=== PATIENT | female | born 1975 | race Two or more races ===

== ENCOUNTER 2017-05-25 21:10 | Emergency (ER) | payer OTHER ==
[~2017-05-25] VITALS: Ht 149.9 cm; Wt 88.5 kg
[~2017-05-25 21:10] MED LIST: BACTRIM-DS1 EA ORAL; BENTYL10 MG ORAL; CIPRO500 MG PO; COLACE100 MG ORAL; KEFLEX500 MG ORAL; NKM; NORCO 5-325 TA1 EACH ORAL; OMEPRAZOLE40 M1 ORAL; PROVENTIL HFA6.7 G1; VICODIN 5-5001 EACH PO; ZANTAC150 MG ORAL; birth control; no home meds
[2017-05-25] MEDS ORDERED: OMEPRAZOLE MAGN20 MG PO (21:24)
[2017-05-25 21:41] VITALS: BP 140/97
--- NOTE | 2017-05-25 21:45 | Emergency Room Report ---
History of Present Illness General Chief Complaint: Chest Pain Source: Patient Present Illness HPI 42-year-old female, p/w back and chest pain for 3 days. States that she has sharp left upper back pain, she also experiences under her left rib and her substernal area., sharp in nature, multiple episodes. Nonexertional. no SOB. Denies palpitations, diaphoresis, n/v. This is the first occurrence of chest pain. Denies fever, chills, cough, abd pain, recent viral illness. Denies trauma. Denies cardiac history, smoking, or family history of cardiac disease at a young age. Denies history of PE/DVT, no recent surgeries, prolonged immobilzation, malignancy, or use of OCPs/HRT. Allergies: Coded Allergies: AMOXICILLIN (Verified Allergy, Unknown, 05/25/17) Patient History Past Medical History: see triage record Past Surgical History: none Pertinent Family History: none Last Menstrual Period: 05/01/17 Now: No Reviewed Nursing Documentation: PMH: Agreed; PSxH: Agreed Nursing Documentation-PMH Past Medical History: No History, Except For Hx Cardiac Problems: No - Left jaw tumor (removed 2013) Hx Asthma: Yes Hx Gastrointestinal Problems: Yes - GERD Review of Systems All Other Systems: negative except mentioned in HPI Physical Exam Vital Signs Date Time Temp Pulse Resp B/P (MAP) Pulse Ox O2 Delivery O2 Flow Rate FiO2 05/25/17 21:17 98.0 87 16 140/97 99 Room Air 98.1 Sp02 EP Interpretation: reviewed, normal General Appearance: normal inspection, well appearing, no apparent distress, alert, GCS 15, non-toxic Head: normocephalic, atraumatic Eyes: bilateral eye normal inspection, bilateral eye PERRL, bilateral eye EOMI ENT: normal ENT inspection, normal pharynx, normal voice, moist mucus membranes Neck: normal inspection, full range of motion, supple Respiratory: normal inspection, lungs clear, normal breath sounds, no respiratory distress, no retraction, no wheezing, speaking full sentences, chest symmetrical Cardiovascular #1: normal inspection, regular rate, rhythm, no edema, normal capillary refill Cardiovascular #2: 2+ radial (R), 2+ radial (L) Gastrointestinal: normal inspection, non tender, soft, non-distended, no guarding Musculoskeletal: other - Left-sided upper thoracic paraspinal tenderness, also tender along scapula bone, tender along left sixth rib, full range of motion all extremities. No signs of trauma. Neurologic: normal inspection, alert, oriented x3, responsive, motor strength/ tone normal, sensory intact, normal gait, speech normal Psychiatric: normal inspection, judgement/insight normal, memory normal Skin: normal inspection, normal color, no rash, warm/dry, well hydrated, normal turgor Medical Decision Making Diagnostic Impression: Primary Impression: Chest pain Additional Impression: Back pain ER Course 42-year-old female p/w back and chest pain DDX: Musculoskeletal CP/costochondritis vs. pneumothorax vs. gastritis/GERD PE less likely given history and physical examination, not hypoxic/tachycardic, no risk factors, PERC negative. ACS less likely given age/history, low suspicion for aortic dissection Plan: NSAIDs, EKG, CXR Anticipate DC home as patient appears clinically well. ER course: Patient remains well appearing in ED. had intermittent muscular spasms that self resolved VS normal. no hypoxia nontoxic appearing conversing with at bedside ekg/cxr neg will dc home Disposition: Patient will be discharged to home with a prescription of motrin and robaxin Strict precautions discussed with patient on when to emergently return to the ED : this includes worsening/severe chest pain, palpitations, shortness of breath, syncopal episodes, fever or chills, which may indicate severe illness. Patient verbalized understanding. Patient instructed to follow up with their PMD within the next 2 days. Patient agrees with plan. Please note that this Emergency Department Report was dictated using [employer] ramp supervisor technology software, occasionally this can lead to erroneous entry secondary to interpretation by the dictation equipment. EKG Diagnostic Results EP Interpretation: Yes Rate: normal Rhythm: NSR ST Segments: No acute changes ASA given to patient: no Rhythm Strip EP Interpretation: Yes Rate: 80 Rhythm: NSR, no PVCs, no ectopy Chest X-ray CXR: Ordered: Yes 1 view Indication: Chest pain EP interpretation: Yes Interpretation: No consolidation, no effusion, no PTX, no acute cardiopulmonary disease Impression: No acute disease Electronically signed by Lucy Forrest MD Last Vital Signs Date Time Temp Pulse Resp B/P (MAP) Pulse Ox O2 Delivery O2 Flow Rate FiO2 05/25/18 21:17 98.0 87 16 140/97 99 Room Air 98.1 Disposition: HOME, SELF-CARE Condition: Improved Scripts Ibuprofen* (MOTRIN*) 600 Mg Tablet 600 MG ORAL Q8H PRN for For Pain, #30 TAB 0 Refills Prov: Lucy Forrest M.D. 05/25/17 Methocarbamol* (ROBAXIN-750*) 750 Mg Tablet 750 MG PO QID, #28 TAB 0 Refills Prov: Lucy Forrest M.D. 05/25/17 Referrals: NON PHYSICIAN (PCP) Patient Instructions: Nonspecific Chest Pain Lucy Forrest M.D. May 25, 2017 21:45
[2017-05-25 21:56] LABS: APPEARANCE,URINE CLEAR; BILIRUBIN, URINE NEGATIVE (NEGATIVE); COLOR,URINE PALE YELLOW; GLUCOSE, URINE (UA) NEGATIVE (NEGATIVE); KETONES,URINE NEGATIVE (NEGATIVE); LEUKOCYTE ESTERASE ,URINE NEGATIVE (NEGATIVE); NITRITE,URINE NEGATIVE (NEGATIVE); PH,URINE 6 (4.5-8.0); PROTEIN,URINE NEGATIVE (NEGATIVE); UROBILINOGEN,URINE NORMAL MG/DL (0.0-1.0)
[2017-05-25] MEDS ORDERED: ROBAXIN-750750 MG PO (22:14)
[2017-05-25] MEDS ORDERED: IBUPROFEN600 MG ORAL (22:14)
[2017-05-25] MEDS ORDERED: Ketorolac 30mg Inj IM ONE (22:15)
[2017-05-25] MEDS ORDERED: Methocarbamol 750mg tab ORAL ONE (22:15)
[2017-05-25 22:30] VITALS: BP 140/97
--- NOTE | 2017-05-26 09:55 | Diagnostic Imaging Report ---
Indication: Chest pain Technique: One view of the chest Comparison: 04/18/2012 Findings: Lungs and pleural spaces are clear. Heart size is normal. No significant interim change Impression: No acute process
== END 2017-05-25 22:30 | disposition home or self-care (01) ==
LOC: EMR 21:23
DX: R07.9 Chest pain, unspecified (principal); M54.9 Dorsalgia, unspecified; J45.909 Unspecified asthma, uncomplicated; K21.9 Gastro-esophageal reflux disease without esophagitis; Z88.1 Allergy status to other antibiotic agents
CPT/HCPCS: 71045; 81003; 81025; 93005; 96372; 99284; J1885

== ENCOUNTER 2017-06-18 22:30 | Emergency (ER) | payer OTHER ==
[~2017-06-18] VITALS: Ht 149.9 cm; Wt 90.7 kg
[~2017-06-18 22:30] MED LIST changes: +IBUPROFEN600 MG ORAL; +OMEPRAZOLE MAGN20 MG PO; +ROBAXIN-750750 MG PO
[2017-06-18 22:34] VITALS: BP 117/66
[2017-06-18] MEDS ORDERED: TRAMADOL HCL50 MG ORAL (22:40)
[2017-06-18] MEDS ORDERED: LEVOFLOXACIN500 MG ORAL (22:40)
[2017-06-18] MEDS ORDERED: METRONIDAZOLE500 MG ORAL (22:40)
[2017-06-18 22:58] LABS: APPEARANCE,URINE CLEAR; BILIRUBIN, URINE NEGATIVE (NEGATIVE); GLUCOSE, URINE (UA) NEGATIVE (NEGATIVE); KETONES,URINE 2+ (NEGATIVE); LEUKOCYTE ESTERASE ,URINE 3+ (NEGATIVE); NITRITE,URINE NEGATIVE (NEGATIVE); PH,URINE 5 (4.5-8.0); PROTEIN,URINE NEGATIVE (NEGATIVE); UROBILINOGEN,URINE 1 MG/DL (0.0-1.0)
[2017-06-18 23:00] LABS: COLOR,URINE YELLOW
[2017-06-18 23:39] LABS: BASOPHILS % (AUTO) 0.9 % (0.0-2.0); EOSINOPHILS % (AUTO) 1.7 % (0.0-3.0); HEMATOCRIT 37.6 % (37.0-47.0); HEMOGLOBIN 13.3 G/DL (12.0-16.0); LYMPHOCYTES % (AUTO) 31.3 % (20.0-45.0); MEAN CORPUSCULAR VOLUME 80 FL (80-99); MONOCYTES % (AUTO) 7.7 % (1.0-10.0); NEUTROPHILS % (AUTO) 58.3 % (45.0-75.0); PLATELET COUNT 417 K/UL (150-450); RED BLOOD COUNT 4.67 M/UL (4.20-5.40); RED CELL DISTRIBUTION WIDTH 12.3 % (11.6-14.8)
[2017-06-18 23:45] LABS: ANION GAP 7 mmol/L (5-15); BLOOD UREA NITROGEN 13 mg/dL (7-18); CALCIUM 8.8 MG/DL (8.5-10.1); CARBON DIOXIDE 27 MMOL/L (21-32); CHLORIDE 102 MMOL/L (98-107); CREATININE 0.8 MG/DL (0.55-1.30); SODIUM 136 MMOL/L (136-145)
[2017-06-18 23:50] LABS: ALANINE AMINOTRANSFERASE 23 U/L (12-78); ALBUMIN 3.5 G/DL (3.4-5.0); ALBUMIN/GLOBULIN RATIO 0.8 (1.0-2.7); ALKALINE PHOSPHATASE 91 U/L (46-116); ASPARTATE AMINO TRANSFERASE 19 U/L (15-37); BILIRUBIN,TOTAL 0.4 MG/DL (0.2-1.0)
[2017-06-19 00:11] VITALS: BP 113/73
--- NOTE | 2017-06-19 00:35 | Emergency Room Report ---
History of Present Illness General Chief Complaint: Abdominal Pain Source: Patient, Medical Record Present Illness HPI This is a 42-year-old female with a history of oral surgery with infection. She is currently taking Flagyl and Levaquin for the last 3 weeks. She has 1 more week to go. She presents with chief point of abdominal pain. Pain is to the right flank area. No dysuria frequency. Found out that she was a couple days ago. No discharge or bleeding. Pain is crampy in nature. No dysuria or frequency. Allergies: Coded Allergies: AMOXICILLIN (Verified Allergy, Unknown, 05/25/17) Patient History Past Medical History: see triage record, old chart reviewed Past Surgical History: other Pertinent Family History: none Social History: Denies: smoking Last Menstrual Period: 06/01/17 Now: Yes : 3 Para: 2 Immunizations: other Reviewed Nursing Documentation: PMH: Agreed; PSxH: Agreed Nursing Documentation-PMH Hx Cardiac Problems: No - Left jaw tumor (removed 2013) Hx Asthma: Yes Hx Gastrointestinal Problems: Yes - GERD Review of Systems Eye: Denies: eye pain, blurred vision ENT: Denies: ear pain, nose congestion, throat swelling Respiratory: Denies: cough, shortness of breath Cardiovascular: Denies: chest pain, palpitations Gastrointestinal: Reports: abdominal pain; Denies: diarrhea, nausea, vomiting Musculoskeletal: Denies: back pain, joint pain Skin: Denies: rash Neurological: Denies: headache, numbness Endocrine: Denies: increased thirst, increased urine Hematologic/Lymphatic: Denies: easy bruising All Other Systems: negative except mentioned in HPI Physical Exam Vital Signs Date Time Temp Pulse Resp B/P (MAP) Pulse Ox O2 Delivery O2 Flow Rate FiO2 06/18/17 22:34 97.4 88 16 117/66 97 Room Air 97.4 vitals normal Sp02 EP Interpretation: reviewed, normal General Appearance: well appearing, no apparent distress, alert Head: normocephalic, atraumatic Eyes: bilateral eye PERRL, bilateral eye EOMI ENT: hearing grossly normal, normal pharynx Neck: full range of motion, supple, no meningismus Respiratory: chest non-tender, lungs clear, normal breath sounds Cardiovascular #1: regular rate, rhythm, no murmur Gastrointestinal: normal bowel sounds, non tender, no mass, no organomegaly, no bruit, non-distended Musculoskeletal: back normal, gait/station normal, normal range of motion Psychiatric: mood/affect normal Skin: warm/dry Medical Decision Making Diagnostic Impression: Primary Impression: Abdominal pain Qualified Codes: R10.84 - Generalized abdominal pain Additional Impression: Qualified Codes: Z3A.01 - Less than 8 weeks gestation of ER Course Patient with abdominal pain. No evidence of on ultrasound but she is very early in the process. Explained to the patient that this may be early , ectopic, or failed . She will need close follow-up. Also splint to her that the Levaquin is a class C drug as is the Flagyl in first trimester. She needs to see her doctor to see if she need to be on this antibiotics or change. We'll discharge home. No evidence of an acute abdomen. CT/MRI/US Diagnostic Results CT/MRI/US Diagnostic Results : Imaging Test Ordered: pelvic ultrasound Impression negative per jewelry department supervisor Last Vital Signs Date Time Temp Pulse Resp B/P (MAP) Pulse Ox O2 Delivery O2 Flow Rate FiO2 06/19/17 00:11 88 18 113/73 97 Room Air 06/18/17 22:34 98.4 98.4 Status: improved Disposition: HOME, SELF-CARE Condition: Stable Referrals: NON PHYSICIAN (PCP) Patient Instructions: Abdominal Pain During Additional Instructions: You were very early in the . This could be an early versus an ectopic. You will need close follow-up for repeat blood testing and ultrasound. Call your doctor tomorrow to discuss the 2 antibiotics you are currently on to see if they are safe in . ABDULLAHI CHAVEZ M.D. Jun 19, 2017 00:35
[2017-06-19 00:45] VITALS: BP 114/68
[2017-06-19 00:47] VITALS: BP 114/68
[2017-06-19] MEDS ORDERED: Acetaminophen 500mg (ES) tab ORAL ONE (01:00)
--- NOTE | 2017-06-19 10:32 | Diagnostic Imaging Report ---
Indication: Abdominal pain. Positive test Technique: Transabdominal and transvaginal images Comparison: none Findings: Uterus measures 10.6 cm length by 6 cm AP. The endometrium is thickened, measuring up to 22 mm thick. No intrauterine visualized. No myometrial abnormality. Left ovary measures 3.2 cm in length. Right ovary measures 3.2 cm in length. No adnexal mass demonstrated. No cul-de-sac fluid. Incidental finding of cervical nabothian cyst Impression: No intrauterine visualized. Differential considerations include very early , spontaneous , ectopic Incidental finding of cervical nabothian cysts
== END 2017-06-19 00:47 | disposition home or self-care (01) ==
LOC: EMR 22:45
DX: O26.891 Other specified pregnancy related conditions, first trimester (principal); Z3A.00 Weeks of gestation of pregnancy not specified; R10.9 Unspecified abdominal pain; N88.8 Other specified noninflammatory disorders of cervix uteri
CPT/HCPCS: 36415; 76830; 76856; 80053; 81003; 83690; 84702; 85025; 96361; 96374; 99284

== ENCOUNTER 2017-06-29 00:04 | Emergency (ER) | payer OTHER ==
[~2017-06-29] VITALS: Ht 149.9 cm; Wt 89.8 kg
[~2017-06-29 00:04] MED LIST changes: +LEVOFLOXACIN500 MG ORAL; +METRONIDAZOLE500 MG ORAL; +TRAMADOL HCL50 MG ORAL
--- NOTE | 2017-06-29 01:12 | Emergency Room Report ---
History of Present Illness General Chief Complaint: Complications Source: Patient, Medical Record Present Illness HPI Is a 42-year-old female with no cerumen past medical history. She presents with chief complaint of pelvic pain with vaginal bleeding. I saw her 10 days ago for the same thing. Then she had a positive with hCG of 521. Ultrasound was negative for any IUP with a thickened endometrium. When she got home she continues to have for increasing bleeding with clots and saw her doctor 2 days later. Had a repeat hCG done and it was 750. Bleeding stopped and pain got better. It came back again tonight with spotting. Cramping in nature. No dysuria frequency. No nausea no vomiting. No discharge. Allergies: Coded Allergies: AMOXICILLIN (Verified Allergy, Unknown, 05/25/17) Patient History Past Medical History: see triage record, old chart reviewed Past Surgical History: other Pertinent Family History: none Social History: Denies: smoking Last Menstrual Period: May Now: Yes Immunizations: other Reviewed Nursing Documentation: PMH: Agreed; PSxH: Agreed Nursing Documentation-PMH Hx Cardiac Problems: No - Left jaw tumor (removed 2013) Hx Asthma: Yes Hx Gastrointestinal Problems: Yes - GERD Review of Systems Eye: Denies: eye pain, blurred vision ENT: Denies: ear pain, nose congestion, throat swelling Respiratory: Denies: cough, shortness of breath Cardiovascular: Denies: chest pain, palpitations Gastrointestinal: Reports: abdominal pain; Denies: diarrhea, nausea, vomiting Musculoskeletal: Denies: back pain, joint pain Skin: Denies: rash Neurological: Denies: headache, numbness Endocrine: Denies: increased thirst, increased urine Hematologic/Lymphatic: Denies: easy bruising All Other Systems: negative except mentioned in HPI Physical Exam Vital Signs Date Time Temp Pulse Resp B/P (MAP) Pulse Ox O2 Delivery O2 Flow Rate FiO2 06/29/17 00:16 97.9 94 16 119/73 98 97.9 vitals normal Sp02 EP Interpretation: reviewed, normal General Appearance: well appearing, no apparent distress, alert Head: normocephalic, atraumatic Eyes: bilateral eye PERRL, bilateral eye EOMI ENT: hearing grossly normal, normal pharynx Neck: full range of motion, supple, no meningismus Respiratory: chest non-tender, lungs clear, normal breath sounds Cardiovascular #1: regular rate, rhythm, no murmur Gastrointestinal: normal bowel sounds, no mass, no organomegaly, no bruit, non- distended, tenderness - suprapubic Musculoskeletal: back normal, gait/station normal, normal range of motion Psychiatric: mood/affect normal Skin: warm/dry Medical Decision Making Diagnostic Impression: Primary Impression: Incomplete miscarriage ER Course Patient with vaginal bleeding and probable miscarriage. HCG is down to 417. Will need repeat hCG and if not better we'll need referral to see a fitting room operator for possible D&C. There is no evidence of infection. Abdominal exam is benign. No evidence of ruptured ectopic. We'll discharge home. HCG is too low for ultrasound. When it was 521 ultrasound was negative for IUP. Last Vital Signs Date Time Temp Pulse Resp B/P (MAP) Pulse Ox O2 Delivery O2 Flow Rate FiO2 06/29/17 00:16 97.9 94 16 119/73 98 97.9 Status: improved Disposition: HOME, SELF-CARE Condition: Stable Scripts Ibuprofen* (MOTRIN*) 600 Mg Tablet 600 MG ORAL THREE TIMES A DAY, #30 TAB 0 Refills Prov: ABDULLAHI CHAVEZ M.D. 06/29/17 Additional Instructions: Follow-up with your doctor Friday for repeat blood testing on level. If still with elevated level, will be referred to see fitting room operator. ABDULLAHI CHAVEZ M.D. Jun 29, 2017 01:12
[2017-06-29] MEDS ORDERED: IBUPROFEN600 MG ORAL (02:58)
[2017-06-29 03:07] VITALS: BP 115/71
[2017-06-29 03:08] VITALS: BP 115/71
== END 2017-06-29 03:10 | disposition home or self-care (01) ==
LOC: EMR 00:30
DX: O03.4 Incomplete spontaneous abortion without complication (principal); J45.909 Unspecified asthma, uncomplicated; K21.9 Gastro-esophageal reflux disease without esophagitis; Z88.0 Allergy status to penicillin
CPT/HCPCS: 36415; 84702; 84703; 99283

== ENCOUNTER 2017-11-12 10:17 | Emergency (ER) | payer OTHER ==
[~2017-11-12] VITALS: Ht 149.9 cm; Wt 88.5 kg
[2017-11-12 10:20] VITALS: BP 146/104
[2017-11-12 11:22] LABS: BASOPHILS % (AUTO) 1.8 % (0.0-2.0); EOSINOPHILS % (AUTO) 1.7 % (0.0-3.0); HEMATOCRIT 42.4 % (37.0-47.0); HEMOGLOBIN 14.2 G/DL (12.0-16.0); LYMPHOCYTES % (AUTO) 41.9 % (20.0-45.0); MEAN CORPUSCULAR VOLUME 82 FL (80-99); MONOCYTES % (AUTO) 5.6 % (1.0-10.0); NEUTROPHILS % (AUTO) 49.1 % (45.0-75.0); PLATELET COUNT 368 K/UL (150-450); RED CELL DISTRIBUTION WIDTH 11.5 % (11.6-14.8); WHITE BLOOD COUNT 7.6 K/UL (4.8-10.8)
[2017-11-12 11:27] LABS: ANION GAP 10 mmol/L (5-15); BLOOD UREA NITROGEN 12 mg/dL (7-18); CALCIUM 9.7 MG/DL (8.5-10.1); CARBON DIOXIDE 24 MMOL/L (21-32); CHLORIDE 104 MMOL/L (98-107); CREATININE 0.6 MG/DL (0.55-1.30); POTASSIUM 4.2 MMOL/L (3.5-5.1); SODIUM 138 MMOL/L (136-145)
--- NOTE | 2017-11-12 11:51 | Emergency Room Report ---
History of Present Illness General Chief Complaint: Complications Source: Patient Present Illness HPI This patient went to her PMD two days and states that he called yesterday to tell her she was based upon blood test he did two days ago. Pt. c/o light vaginal bleeding this am. No pain. LMP September 16. Pt. seems to me to be wanting to be but not actually , based upon her manners/speech. Allergies: Coded Allergies: AMOXICILLIN (Verified Allergy, Unknown, 05/25/17) Patient History Last Menstrual Period: 2017 Now: No : 2 Para: 1 Nursing Documentation-PMH Hx Cardiac Problems: No - Left jaw tumor (removed 2013) Hx Asthma: Yes Hx Gastrointestinal Problems: Yes - GERD Review of Systems Constitutional: Reports: no symptoms Eye: Reports: no symptoms ENT: Reports: no symptoms Respiratory: Reports: no symptoms Cardiovascular: Reports: no symptoms Gastrointestinal: Reports: no symptoms Genitourinary: Reports: no symptoms Musculoskeletal: Reports: no symptoms Skin: Reports: no symptoms Psychiatric: Reports: no symptoms Neurological: Reports: no symptoms Endocrine: Reports: no symptoms Hematologic/Lymphatic: Reports: no symptoms Allergic: Reports: no symptoms All Other Systems: negative except mentioned in HPI Physical Exam Vital Signs Date Time Temp Pulse Resp B/P (MAP) Pulse Ox O2 Delivery O2 Flow Rate FiO2 11/12/17 10:17 98.1 83 18 146/104 97 Room Air 98.1 Sp02 EP Interpretation: reviewed, normal General Appearance: normal inspection, well appearing, no apparent distress, alert, GCS 15, non-toxic Head: normocephalic, atraumatic Eyes: bilateral eye normal inspection, bilateral eye PERRL, bilateral eye EOMI ENT: normal ENT inspection, hearing grossly normal, normal pharynx, no angioedema, normal voice, moist mucus membranes Neck: normal inspection, full range of motion, supple, no meningismus, no bony tend Respiratory: normal inspection, lungs clear, normal breath sounds, no rhonchi, no respiratory distress, no retraction, no accessory muscle use, no wheezing Cardiovascular #1: normal inspection, regular rate, rhythm, no edema Gastrointestinal: normal inspection, normal bowel sounds, non tender, soft, no mass, non-distended Musculoskeletal: gait/station normal, normal range of motion Neurologic: normal inspection, alert, oriented x3, responsive, motor strength/ tone normal Psychiatric: normal inspection, judgement/insight normal, memory normal Suicide Risk Assessment: Suicidal Ideation: No Had intent to initiate attempt: No Pt's plan for suicide attempt: No Has means to complete attempt: No Skin: normal inspection, normal color, no rash, warm/dry Medical Decision Making Diagnostic Impression: Primary Impression: Vaginal bleeding ER Course With patient's permission I asked RN to obtain results from PMD. I do not believe PMD told her she was . Our b-hcg qualitative is "1". Last Vital Signs Date Time Temp Pulse Resp B/P (MAP) Pulse Ox O2 Delivery O2 Flow Rate FiO2 11/12/17 10:17 98.1 83 18 146/104 97 Room Air 98.1 Status: improved Disposition: HOME, SELF-CARE Condition: Stable Referrals: NON PHYSICIAN (PCP) Patient Instructions: Menstruation Corey Rothman M.D. Nov 12, 2017 11:51
[2017-11-12 12:33] VITALS: BP 123/74
== END 2017-11-12 12:45 | disposition home or self-care (01) ==
LOC: EMR 10:49
DX: O46.91 Antepartum hemorrhage, unspecified, first trimester (principal)
CPT/HCPCS: 36415; 80048; 84702; 85025; 85610; 86850; 86900; 86901; 99282; 99284